=== PATIENT | female | born 1965 ===

== ENCOUNTER 2018-04-26 15:19 | Outpatient (CLI) | payer OTHER ==
[~2018-04-26] VITALS: Ht 175.3 cm; Wt 85.3 kg
== END 2018-04-26 15:35 | disposition home or self-care (01) ==
LOC: OFIC 805 15:19
DX: K21.9 Gastro-esophageal reflux disease without esophagitis (principal); R05 Cough; R22.1 Localized swelling, mass and lump, neck

== ENCOUNTER 2018-04-30 08:23 | Outpatient (CLI) | payer OTHER ==
[~2018-04-30] VITALS: Ht 152.4 cm; Wt 85.3 kg
== END 2018-04-30 08:40 | disposition home or self-care (01) ==
LOC: OFIC 805 08:23
DX: E04.1 Nontoxic single thyroid nodule (principal)

== ENCOUNTER 2018-05-14 08:29 | Outpatient (CLI) | payer OTHER | END 2018-05-14 08:32 | disposition home or self-care (01) | LOC: SONOGRAMA 08:29 | DX: E04.2 Nontoxic multinodular goiter (principal) ==

== ENCOUNTER 2018-06-14 12:20 | Outpatient (CLI) | payer OTHER ==
[~2018-06-14] VITALS: Ht 152.4 cm; Wt 85.3 kg
== END 2018-06-14 12:40 | disposition home or self-care (01) ==
LOC: OFIC 805 12:20
DX: E04.1 Nontoxic single thyroid nodule (principal); H93.11 Tinnitus, right ear

== ENCOUNTER 2018-07-26 12:13 | Outpatient (CLI) | payer OTHER ==
[~2018-07-26] VITALS: Ht 152.4 cm; Wt 85.3 kg
== END 2018-07-26 12:30 | disposition home or self-care (01) ==
LOC: OFIC 805 12:13
DX: R22.1 Localized swelling, mass and lump, neck (principal); H93.11 Tinnitus, right ear

== ENCOUNTER 2018-09-25 08:52 | Outpatient (CLI) | payer OTHER | END 2018-09-25 08:54 | disposition home or self-care (01) | LOC: SONOGRAMA 08:52 | DX: R22.1 Localized swelling, mass and lump, neck (principal) ==

== ENCOUNTER 2018-10-07 13:03 | Outpatient (CLI) | payer OTHER ==
[~2018-10-07] VITALS: Ht 152.4 cm; Wt 85.3 kg
== END 2018-10-07 13:20 | disposition home or self-care (01) ==
LOC: OFIC 805 13:03
DX: R22.1 Localized swelling, mass and lump, neck (principal); E04.1 Nontoxic single thyroid nodule

== ENCOUNTER 2019-07-09 09:09 | Outpatient (CLI) | payer OTHER ==
[~2019-07-09] VITALS: Ht 152.4 cm; Wt 83.9 kg
== END 2019-07-09 09:35 | disposition home or self-care (01) ==
LOC: OFIC 805 09:09
DX: E04.1 Nontoxic single thyroid nodule (principal); R22.1 Localized swelling, mass and lump, neck